=== PATIENT | male | born 1985 | race African-American/Black ===

== ENCOUNTER 2017-02-10 16:07 | Emergency (ER) | payer MEDICAID ==
[~2017-02-10] VITALS: Ht 162.6 cm; Wt 79.4 kg
[2017-02-10 21:01] VITALS: BP 109/78
== END 2017-02-10 22:16 | disposition home or self-care (01) ==
LOC: ER 16:11
DX: J02.9 Acute pharyngitis, unspecified (principal); J35.1 Hypertrophy of tonsils; F17.210 Nicotine dependence, cigarettes, uncomplicated; F12.10 Cannabis abuse, uncomplicated
CPT/HCPCS: 93005